=== PATIENT | female | born 1995 | race African-American/Black ===

== ENCOUNTER 2017-08-08 13:50 | Emergency (ER) | payer OTHER, SELFPAY ==
[2017-08-08] MEDS ORDERED: Loperamide HCl 2 MG CAP ONE (14:20)
[2017-08-08] MEDS ORDERED: Ondansetron ODT 4 MG TAB ONE (14:20)
== END 2017-08-08 15:08 | disposition home or self-care (01) ==
LOC: BURERS 13:50
DX: R19.7 Diarrhea, unspecified (principal)
CPT/HCPCS: 99283; Q0162

== ENCOUNTER 2018-01-25 15:04 | Emergency (ER) | payer SELFPAY ==
[2018-01-25] MEDS ORDERED: Ibuprofen 800 MG TAB ONE (15:15)
[2018-01-25] MEDS ORDERED: HYDROcodone/Acetaminophen 10/325 mg Tablet ONE (15:15)
[2018-01-25] MEDS ORDERED: AMOXicillin 250 MG CAP ONE (15:15)
== END 2018-01-25 16:13 | disposition home or self-care (01) ==
LOC: BURERS 15:04
DX: K04.7 Periapical abscess without sinus (principal); K02.9 Dental caries, unspecified

== ENCOUNTER 2018-03-11 14:30 | Emergency (ER) | payer SELFPAY ==
[2018-03-11 15:02] LABS: #Basophils 0.1 thou/uL (0.0-0.2); #Eosinphils 0.1 thou/uL (0.0-0.7); #Lymphocytes 2.3 thou/uL (1.20-3.40); #Monocytes 0.4 thou/uL (0.11-0.59); #Neutrophils 3.2 thou/uL (1.40-6.50); %Basophils 0.8 % (0.0-1.0); %Eosinophils 1.8 % (0.0-10.0); %Lymphocytes 38.6 % (21.0-51.0); %Monocytes 5.9 % (0.0-10.0); %Neutrophils 52.9 % (42.0-75.0); Hemoglobin 12.8 g/dL (12.0-16.0); Mean Corpuscular HGB CONC 35.3 g/dL (32.0-36.0); Mean Corpuscular Hemoglobin 30.1 pg (27.0-31.0); Mean Corpuscular Volume 85.5 fL (78.0-98.0); Mean Platelet Volume 7.3 fL (7.4-10.4); Platelet Count 252 thou/uL (130-400); RBC Distribution Width 12.4 % (11.5-14.5); Red Blood Cell (RBC) Count 4.24 mill/uL (4.20-5.40)
[2018-03-11 15:03] LABS: Clarity Slightly Cloudy (Clear); Leukocyte Small (Negative)
[2018-03-11 15:04] LABS: Bilirubin Negative (Negative); Blood, Urine Negative (Negative); Glucose, Urine (Dipstick) Negative (Negative); Nitrite Negative (Negative); Protein, Urine (Dipstick) Negative (Neg-Trace); Urobilinogen 0.2 mg/dL (0.2-1.0)
[2018-03-11 15:05] LABS: Pregnancy Test - Urine (BHCG) Negative (Negative); Pregu Control Background? CLEAR/WHITE (CLR/WHITE); Pregu Control Bar Appear? YES (CONTROL BAR)
[2018-03-11 15:07] LABS: Bacteria/HPF 3+ HPF (None Seen); RBC/HPF 0-3 HPF (0-3); Squamous Epithelial 0-3 HPF (0-3)
[2018-03-11 15:18] LABS: ALT (SGPT) 8 U/L (8-55); AST (SGOT) 14 U/L (5-34); Albumin 4.3 g/dL (3.5-5.0); Alkaline Phosphatase 46 U/L (40-150); Anion Gap 14 mmol/L (10-20); BUN (Urea Nitrogen) 7 mg/dL (7.0-18.7); Bilirubin, Total 0.8 mg/dL (0.2-1.2); Calc. Creatinine Clearance 0 mL/min (70-130); Calcium 9.3 mg/dL (7.8-10.44); Carbon Dioxide 23 mmol/L (22-29); Chloride 106 mmol/L (98-107); Estimated GFR-MDRD Greater than 90; Globulin 2.7 g/dL (2.4-3.5); Glucose 93 mg/dL (70-105); Lipase 12 U/L (8-78); Potassium 3.8 mmol/L (3.5-5.1); Sodium 139 mmol/L (136-145)
[2018-03-11] MEDS ORDERED: Morphine 4 MG/ML VIAL ONE (16:00)
--- NOTE | 2018-03-11 16:11 | CT ---
CT ABDOMEN AND PELVIS WITH CONTRAST: 03/11/2018 HISTORY: A spiral CT of the abdomen and pelvis was performed for evaluation of right lower quadrant pain. TECHNIQUE: Axial slices were acquired after giving IV contrast, and coronal and sagittal reconstructions were benson bsequently done. FINDINGS: ABDOMEN: The lung bases are clear. The liver, spleen, pancreas, adrenal glands, gallbladder, kidney s, and abdominal aorta all appear normal. There is abundant fecal material within the large bowel, but no sign of obstruction. There are no in flammatory changes around the bowel. The appendix was identified and appears normal. No free air is seen. PELVIS: CT of the pelvis shows a trace of fluid in the cul-de-sac. There is what appears to be a re maining right ovary, just superior and lateral to the bladder, on the right side, that has a 1.7 cm r im enhancing cyst within it. It was difficult to definitively identify the left ovary, though what I feel is probably normal in size. There has been a prior hysterectomy. Some fluid-filled loops of b owel are seen deep in the pelvis, which is a nonspecific finding. IMPRESSION: 1. Normal appearing appendix. 2. A 1.7 cm cyst in the right ovary. 3. Trace of fluid in the cul-de-sac. POS: HOME
== END 2018-03-11 16:36 | disposition short-term general hospital (02) ==
LOC: BURERS 14:30
DX: N83.201 Unspecified ovarian cyst, right side (principal)
CPT/HCPCS: 74177; 80053; 81003; 81015; 81025; 83605; 83690; 85025; 96374; J2270

== ENCOUNTER 2018-07-03 15:44 | Emergency (ER) | payer SELFPAY ==
[2018-07-03 16:11] LABS: Clarity Cloudy (Clear)
[2018-07-03 16:12] LABS: Bilirubin Negative (Negative); Blood, Urine Negative (Negative); Glucose, Urine (Dipstick) Negative (Negative); Leukocyte Small (Negative); Nitrite Negative (Negative); Protein, Urine (Dipstick) Negative (Neg-Trace); pH, Urine 7.5 (5.0-9.0)
[2018-07-03] MEDS ORDERED: Ketorolac Tromethamine 30 MG/ML VIAL ONE (16:13)
[2018-07-03] MEDS ORDERED: Ondansetron PF 4 MG/2 ML Vial ONE (16:13)
[2018-07-03 16:15] LABS: Pregnancy Test - Urine (BHCG) Negative (Negative); Pregu Control Background? CLEAR/WHITE (CLR/WHITE); Pregu Control Bar Appear? YES (CONTROL BAR)
[2018-07-03 16:17] LABS: Bacteria/HPF 2+ HPF (None Seen); RBC/HPF 0-3 HPF (0-3)
[2018-07-03 16:35] LABS: ALT (SGPT) 27 U/L (8-55); AST (SGOT) 46 U/L (5-34); Albumin 4.6 g/dL (3.5-5.0); Alkaline Phosphatase 56 U/L (40-150); Anion Gap 15 mmol/L (10-20); BUN (Urea Nitrogen) 6 mg/dL (7.0-18.7); Bilirubin, Total 0.6 mg/dL (0.2-1.2); Calc. Creatinine Clearance 0 mL/min (70-130); Calcium 10.1 mg/dL (7.8-10.44); Carbon Dioxide 24 mmol/L (22-29); Chloride 104 mmol/L (98-107); Estimated GFR-MDRD Greater than 90; Globulin 3.1 g/dL (2.4-3.5); Glucose 88 mg/dL (70-105); Lipase 28 U/L (8-78); Potassium 3.7 mmol/L (3.5-5.1); Protein, Total 7.7 g/dL (6.0-8.3); Sodium 139 mmol/L (136-145)
[2018-07-03 16:36] LABS: Hemoglobin 13.5 g/dL (12.0-16.0); Mean Corpuscular HGB CONC 32.3 g/dL (32.0-36.0); Mean Corpuscular Hemoglobin 30.9 pg (27.0-31.0); Mean Corpuscular Volume 95.7 fL (78.0-98.0); Mean Platelet Volume 8.2 fL (7.4-10.4); Platelet Count 233 thou/uL (130-400); RBC Distribution Width 13.2 % (11.5-14.5); Red Blood Cell (RBC) Count 4.35 mill/uL (4.20-5.40)
[2018-07-03 16:39] LABS: Band 1 % (5-11); Eosinophils 1 % (0-10); Lymphocytes 50 % (21-51); MDiff Complete? YES; Monocytes 10 % (0-10); Neutrophil 36 % (42-75); Reactive Lymphocytes 2 % (0-10)
--- NOTE | 2018-07-03 16:58 | CT ---
Adult bone survey Right humerus one view Left humerus one view Skull 1 view Cervical spine 3 views Thoracic spine 2 views Lumbar spine 2 views Right forearm 1 view Left forearm 1 view AP pelvis one view Right femur 1 view Left femur 1 view Right lower leg 1 view Left lower leg one view HISTORY: Multiple myeloma. Restaging. COMPARISON: 07/08/2016. FINDINGS: Degenerative changes of the axial spine are apparent. Small focus of dystrophic calcificati on over the right rotator cuff suggests calcific tendinosis. Calcified lymph nodes are again demonstrated at the right axilla. No focal lytic lesions or areas of osseous destruction. IMPRESSION: No radiographic evidence of osseous metastases.
[2018-07-03] MEDS ORDERED: cefTRIAXone\\ROCEPHIN 1 GM VIAL ONE ×2 (17:25→17:30)
[2018-07-03] MEDS ORDERED: Lidocaine 1% PF 5 ML VIAL ONE (17:25)
[2018-07-03] MEDS ORDERED: Water For Injection,Sterile 20 ML ONE (17:30)
[2018-07-03] MEDS ORDERED: Doxycycline 100 MG CAP ONE (17:33)
--- NOTE | 2018-07-04 07:55 | CT ---
ADDENDUM: CT ABDOMEN AND PELVIS WITH CONTRAST 07/03/18 NOTE: Please disregard the initial dictation on this report. It was inadvertently attached to the wro ng patient. Spiral CT of the abdomen and pelvis was done with IV contrast. Comparison is made with prior CT studi es of 03/11/18 and 10/24/16. Axial slices were acquired, followed by coronal and sagittal reconstructio ns. The major finding on this study is on the CT pelvis exam. There is a confluent area deep in the pelv is that lies between the urinary bladder and rectum and goes somewhat superior to the level of the bl adder. There appear to be a few pockets of air throughout this area that are not clearly within bowel , though it is difficult to be 100% certain. There is a slight amount of enhancement at the vaginal m ucosa which may or may not be of significance. As confluent as this density is, it is difficult to re solve its exact etiology as bowel vs pathology. Nevertheless, a gynecological etiology is favored, p articularly an infectious one such as severe PID. I would note that the urinary bladder seems slightl y thick, though it is not completely distended which could affect that. The appendix was identified a nd appears normal. There is no large amount of free fluid evident in the pelvis. The lung bases are clear. There is a vague low density area near the dome of the liver anteriorly. Th is is not seen at all on the prior two CT scans. Some slices suggest that this may even be artifactua l, rather than something like a hemangioma. I currently doubt its significance, though a future scan could be done to check it again. There is a similar area in the medial right lobe of indeterminate si gnificance. The liver, spleen, pancreas, gallbladder, adrenal glands and kidneys otherwise appear nor mal. The aorta is normal in caliber. There is no distention of bowel. A moderate amount of fecal material is seen in the colon but there i s no obstruction. No gross bowel wall thickening was appreciated. IMPRESSION: 1. Confluent area deep in the pelvis with some small pockets of air throughout it that are not c learly within bowel. As mentioned above, a gynecologic etiology is favored, such as severe PID. I wou ld consider gynecological referral and potentially further imaging followup depending upon the progre ss of the patient. 2. Normal appearing appendix. 3. A few low density areas seen in the liver. Not present on prior scans. Currently my leanings are that these are artifactual and/or insignificant. They might be looked again on a future scan. Findings discussed with another radiologist for a second opinion. Findings discussed with Dr. Corbett at 1653 on 07/03/18. Gynecological followup is recommended. POS: HOME
[2018-07-05 00:51] LABS: Chlamydia by PCR Not Detected (NotDetected); GC by PCR Not Detected (NotDetected)
== END 2018-07-03 17:42 | disposition home or self-care (01) ==
LOC: BURERS 15:44
DX: N73.9 Female pelvic inflammatory disease, unspecified (principal); F17.210 Nicotine dependence, cigarettes, uncomplicated
CPT/HCPCS: 74177; 80053; 81003; 81015; 81025; 83690; 85025; 87480; 87491; 87510; 87591; 87660; 96374; 96375; J0696; J1885; J2001; J2405

== ENCOUNTER 2019-04-07 22:41 | Emergency (ER) | payer SELFPAY ==
[2019-04-07] MEDS ORDERED: AMOXicillin 250 MG CAP ONE ×2 (23:10→23:11)
[2019-04-07] MEDS ORDERED: Acetaminophen/Codeine 30-300mg Tablet ONE (23:10)
== END 2019-04-07 23:16 | disposition home or self-care (01) ==
LOC: BURERS 22:41
DX: K04.7 Periapical abscess without sinus (principal); K02.9 Dental caries, unspecified; K03.81 Cracked tooth
CPT/HCPCS: 99282

== ENCOUNTER 2020-03-10 12:10 | Emergency (ER) | payer SELFPAY ==
[~2020-03-10 12:10] MED LIST: Iopamidol 370 76% 100 ML VIAL ONE
[2020-03-10] MEDS ORDERED: Ketorolac Tromethamine 30 MG/ML VIAL ONE (12:43)
[2020-03-10 13:13] LABS: Bilirubin Negative (Negative); Blood, Urine Negative (Negative); Clarity Clear (Clear); Glucose, Urine (Dipstick) Negative (Negative); Ketone, Urine Negative (Negative); Leukocyte Negative (Negative); Nitrite Negative (Negative); Protein, Urine (Dipstick) Negative (Neg-Trace); Specific Gravity, Urine 1.025 (1.005-1.030)
[2020-03-10 13:38] LABS: Hemoglobin 13.3 g/dL (12.0-16.0); Mean Corpuscular HGB CONC 32.1 g/dL (32.0-36.0); Mean Corpuscular Hemoglobin 32.5 pg (27.0-31.0); Mean Platelet Volume 7.9 fL (7.4-10.4); Platelet Count 300 thou/uL (130-400); RBC Distribution Width 13.3 % (11.5-14.5); White Blood Cell (WBC) Count 5.5 thou/uL (4.8-10.8)
[2020-03-10 13:39] LABS: Band 5 % (5-11); Lymphocytes 50 % (21-51); MDiff Complete? YES; Monocytes 5 % (0-10); Neutrophil 38 % (42-75); Reactive Lymphocytes 1 % (0-10)
[2020-03-10 14:10] LABS: ALT (SGPT) 23 U/L (8-55); AST (SGOT) 45 U/L (5-34); Albumin 4.1 g/dL (3.5-5.0); Alkaline Phosphatase 50 U/L (40-110); Anion Gap 15 mmol/L (10-20); BUN (Urea Nitrogen) 8 mg/dL (7.0-18.7); Bilirubin, Total 0.4 mg/dL (0.2-1.2); Calc. Creatinine Clearance 0 mL/min (70-130); Calcium 8.2 mg/dL (7.8-10.44); Carbon Dioxide 26 mmol/L (22-29); Chloride 105 mmol/L (98-107); Glucose 84 mg/dL (70-105); Potassium 3.8 mmol/L (3.5-5.1); Protein, Total 7.1 g/dL (6.0-8.3); Sodium 142 mmol/L (136-145)
[2020-03-10] MEDS ORDERED: cefTRIAXone\\ROCEPHIN 1 GM VIAL ONE (15:26)
[2020-03-10] MEDS ORDERED: Doxycycline 100 MG CAP ONE (15:26)
[2020-03-10] MEDS ORDERED: Fentanyl 100 MCG/2 ML VIAL ONE (15:38)
--- NOTE | 2020-03-10 16:13 | CT ---
CT ABDOMEN AND PELVIS 02/19/20 Comparison is made with the prior study of 07/03/18. Lung bases are clear. The liver, spleen, pancreas, gallbladder, adrenal glands, kidneys, and abdomina l aorta were unremarkable in appearance. The bowel shows no distention or gross wall thickening. No i nflammatory changes are seen around any bowel in the upper abdomen. The wall of the urinary bladder i s thick on the CT of the pelvis raising the question of cystitis. Additionally, the area just superio r to it is somewhat confluent. The patient has had a hysterectomy. I cannot tell if this is inflammat ory reaction in this region such as might be seen with a pelvic infection or merely an unusual collec tion of bowel. There is a slightly similar appearance to the prior study. There is no substantial marianne e fluid. No acute bony changes were appreciated. A 1.5 cm lucency in the left adnexa is probably a do minant follicle or small cyst. No inflammatory changes are seen around this area. IMPRESSION: 1. Thickening of the urinary bladder wall. In the right context, cystitis might be considered. 2. The area in the pelvis around where the uterus was has very poor tissue planes. In particular , the area in the right adnexa seems a bit full. I cannot rule out a pelvic infection here. A pelvic ultrasound could be useful in determining if there is any actual pathology here or not. Findings discussed with Dr. Chavez at 1350 on 03/10/20. POS: HOME
[2020-03-11 18:53] LABS: Chlamydia by PCR Not Detected (NotDetected); GC by PCR Not Detected (NotDetected)
== END 2020-03-10 15:45 | disposition short-term general hospital (02) ==
LOC: BURERS 12:10
DX: R10.2 Pelvic and perineal pain (principal); F17.210 Nicotine dependence, cigarettes, uncomplicated
CPT/HCPCS: 36415; 74177; 80053; 81003; 85025; 87480; 87491; 87510; 87591; 87660; 96374; 96375; J0696; J1885; J3010; Q9967

== ENCOUNTER 2020-06-15 07:55 | Emergency (ER) | payer SELFPAY ==
[2020-06-15 08:37] LABS: Bilirubin Negative (Negative); Blood, Urine Trace (Negative); Clarity Turbid (Clear); Glucose, Urine (Dipstick) Negative (Negative); Ketone, Urine Negative (Negative); Leukocyte Negative (Negative); Nitrite Negative (Negative); Protein, Urine (Dipstick) Trace mg/dL (Neg-Trace); Urobilinogen 0.2 mg/dL (Less than 2); pH, Urine 5.5 (5.0-9.0)
[2020-06-15 08:38] LABS: Specific Gravity, Urine 1.026 (1.002-1.036)
[2020-06-15 08:39] LABS: RBC/HPF 0-3 HPF (0-3); WBC/HPF 0-3 HPF (0-3)
[2020-06-15 08:41] LABS: Bacteria/HPF 1+ HPF (None Seen); Transitional Epithelial 0-3 HPF (None Seen)
== END 2020-06-15 08:43 | disposition home or self-care (01) ==
LOC: BURERS 07:55
DX: Z53.21 Procedure and treatment not carried out due to patient leaving prior to being seen by health care provider (principal)
CPT/HCPCS: 81003; 81015